=== PATIENT | male | born 1965 | race Caucasian/White ===

== ENCOUNTER → 2016-09-10 | Outpatient (CLI) | payer OTHER ==
[~2016-09-10] MED LIST: AZIT250T PO; BNC20 PO; OMEP40CA PO; PRED10TA PO; flonase INH; symbicort INH
[2016-09-10 12:39] LABS: BLOOD UREA NITROGEN 16 mg/dl (7-18); BUN/CREATININE RATIO 18.5 (10-20); CALCIUM 9.6 mg/dl (8.5-10.1); CARBON DIOXIDE 26 mmol/L (21-32); CHLORIDE 106 mmol/L (98-107); CREATININE 0.88 mg/dl (0.60-1.40); GLUCOSE 91 mg/dl (70-99); POTASSIUM 4.3 mmol/L (3.5-5.1); SODIUM 140 mmol/L (136-145)
[2016-09-10 13:28] LABS: URINE APPEARANCE CLEAR (CLEAR); URINE BILIRUBIN NEG (NEG); URINE COLOR DK YELLOW; URINE EPITHELIAL CELL AUTO 0-5 /lpf (0-5); URINE NITRITE NEG (NEG); URINE PH 5.5 (4.5-7.5); URINE SPECIFIC GRAVITY 1.017 (1.000-1.030); UROBILINOGEN NEG (NEG)
[2016-09-10 13:32] LABS: MANUAL MICROSCOPIC REQUIRED? NO; REVIEW REQ? NO
== END | disposition home or self-care (01) ==
LOC: C.LAB1850 10:54
PROVIDERS: ATTEND Allergy & Immunology Allergy
DX: R39.9 Unspecified symptoms and signs involving the genitourinary system (principal); R63.1 Polydipsia

== ENCOUNTER → 2016-10-26 | Outpatient (CLI) | payer OTHER | END | disposition home or self-care (01) | LOC: C.LAB1850 13:09 | PROVIDERS: ATTEND Urology | DX: R35.1 Nocturia (principal); N40.1 Benign prostatic hyperplasia with lower urinary tract symptoms; R39.15 Urgency of urination; R35.0 Frequency of micturition ==

== ENCOUNTER 2024-06-07 16:49 | Observation (INO) ==
--- OUTSIDE RECORDS SUMMARY | 2024-06-07 17:13 | External Medical Summary | Summary of Care ---
Author Name Unknown Organization [facility] Address [address] [place] [address] Phone [phone] Care Team Providers Care Stereoptic Projection Topographer Name Role Phone Petrona Kimble DO Primary Care Provider [phone] Reason for Visit * Reason Onset Date Comments Advice 04/14/2024 Procedure 04/14/2024 Encounter Details Date Type Department Care Team (Late st Contact Info) Description 04/14/2024 Telephone Cardiology, [facility] [address] [place] [address] Nico Kimble DO [address] [place] [address] Advice; Procedure Allergies No known active allergiesdocumented as of this encounter (statuses as of 05/27/2024) Medications Diclofenac Sodium 1 % External Gel (Voltaren) APPLY 1 G TOPICALLY 4X DAILY NEEDED TO JOINTS OF BOTH HANDS/WRISTS/ ELBOWS / KNEES/ ANKLES & FEET 09/12/19 23 Active Zepbound 10 MG/0.5ML Subcutaneous Solution Auto-injector (Tirzepatide-We ight Management) Inject 25 Units under the skin once a week. Active Allopurinol 100 MG Oral Tablet (Zyloprim) Take 1 Tablet by mouth in the morning. 90 Tablet 1 12/07/19 24 Active Omeprazole 20 MG Oral Capsule Delayed Release (PriLOSEC) TAKE 1 CAPSULE DAILY 1 HOURBEFORE THE FIRST MEAL OF THE DAY 90 Capsule 3 12/28/19 24 Active Clindamycin Phosphate 1 % External Solution Apply to the scalp 1-2 times daily 60 mL 2 02/11/20 24 Active Tadalafil 5 MG Oral Tablet (Cialis) Take 1 Tablet by mouth daily as needed for Erectile Dysfunction. 90 Tablet 3 02/26/20 24 Active Tamsulosin HCl 0.4 MG Oral Capsule (Flomax) Take 1 Capsule by mouth in the morning. 90 Capsule 3 02/26/20 24 Active Olmesartan Medoxomil 20 MG Oral Tablet (Benicar)Indica tions:Essential hypertension TAKE 1 TABLET IN THE MORNING 90 Tablet 1 03/15/20 24 Active Apixaban 5 MG Oral Tablet (Eliquis)Indica tions:Atrial fibrillation with RVR (HCC) Take 1 Tablet by mouth in the morning and 1 Tablet before bedtime. 180 Tablet 3 05/29/20 23 024 Discontinued(R efill) Celecoxib 200 MG Oral Capsule (CeleBREX) Take 1 Capsule by mouth in the morning. As needed . 07/23/19 24 024 Discontinued(D ischarged) Atorvastatin Calcium 10 MG Oral Tablet (Lipitor)Indica tions:Dyslipide anita, goal LDL below 70 Take 1 Tablet by mouth in the morning. 90 Tablet 1 12/07/19 24 024 Discontinued(R efill) Metoprolol Tartrate 25 MG Oral Tablet (Lopressor) Take 1 Tablet by mouth in the morning and 1 Tablet before bedtime. Do all this for 14 days. 28 Tablet 04/14/20 24 024 Discontinued documented as of this encounter (statuses as of 05/27/2024) Active Problems Problem Noted Date Diagnosed Date Acute deep vein thrombosis ( DVT) of tibial vein of left lower extremity 07/23/2022 Atrial fibrillation with RVR 07/20/2022 Multiple subsegmental pulmon ted emboli without acute cor pulmonale 07/20/2022 Body mass index (BMI) of 40.0 to 44.9 in adult 0 09/01/2018 Overview: Per Obesity protocol #1 - - BPH without obstruction/lower urinary tract symp toms 09/06/2017 Hypertension Sarcoidosis GERD (gastroesophageal reflux disease) documented as of this encounter (statuses as of 05/27/2024) Resolved Problems Problem Noted Date Diagnosed Date Resolved Date Body mass index (BMI) of 45. 0 to 49.9 in adult 07/07/2018 04/28/2024 Overview: Per Obesity protocol #1 - Body mass index (BMI) of 40. 0 to 44.9 in adult 08/06/2017 07/11/2018 Overview: Per Obesity protocol #1 documented as of this encounter (statuses as of 05/27/2024) Immunizations Name Administration Dates Next Due COVID-19 mRNA, LNP-s, No Pre serve, 2-Dose Series (Proxeon) 06/26/2021,09/22/2020,08/26/2020 Seasonal Influenza, PF, 6 M & above, IM , (FluLaval or Fluzone) 04/04/2023,07/21/2022(Deferred: Patient Refused),04/05/2020,08/21/2019 Seasonal Influenza, Quadriva lent, No Preserve, IM 03/08/2017 Seasonal Influenza, Recombin ant, RIV4, PF, (Flublock) 04/05/2021 TDAP (age 10 and older)(Boostrix) 08/21/2019 Zoster Vaccine Recombinant (Shingrix) 01/07/2020 ,08/21/2019 documented as of this encounter Social History Tobacco Use Types Packs/Day Years Used Date Smoking Tobacco: Never Passive Smoke Exposure: Never Smokeless Tobacco: Never Alcohol Use Standard Drinks/Week Comments Yes 0 (1 standard drink = 0.6 oz pur e alcohol) occ. PHQ-2 Answer Date Recorded PHQ Adult Total Score 0 04/22/2024 Hunger Vital Sign Answer Date Recorded Within the past 12 months, y ou worried that your food would run out before you got the money to buy more. Never true 03/30/20 24 Within the past 12 months, t he food you bought just didn't last and you didn't have money to get more. Never true 03/30/2024 Childcare Answer Date Recorded Do you feel overwhelmed with taking care of a child, family member or friend? No 03/30/2024 Does your family need help f inding childcare? (Household - for ages 0-17 years) Not on file 03/30/2024 Clothing Answer Date Recorded Have you been unable to get clothing when it was really needed? No 03/30/2024 Is your family able to get c lothes or diapers when needed? (Household - for ages 0-17 years) Not on file 03/30/2024 Personal Safety Answer Date Recorded Do you feel unsafe or have concerns for your saf ety? No 03/30/2024 Do you have concerns for you r family's safety? (Household - for ages 0-17 years) Not on file 03/30/2024 Utilities Answer Date Recorded Do you have trouble paying y our heating, water, or electric bill? No 03/30/2024 Is your family able to pay t he heat, water, or electric bill? (Household - for ages 0-17 years) Not on file 03/30/2024 Does your family have access to good internet? (Household - for ages 0-17 years) Not on file 03/30/2024 Employment Status Answer Date Recorded Are you unemployed or without regular income? No 03/30/2024 Does the household have a re lar source of income? (Household - for ages 0-17 years) Not on file 03/30/2024 Social Connections Answer Date Recorded How often do you feel lonely or isolated from th ose around you? Never 03/30/2024 Financial Resource Strain Answer Date R ecorded Do you have any trouble payi ng for your medications, or do you think you might in the future? No 03/30/2024 Does your family have troubl e paying for medicine? (Household - for ages 0-17 years) Not on file 03/30/2024 Transportation Needs Answer Date Record ed Do you have trouble getting a ride to medical visits or work? (Adult - for ages 18 years and over) Not on file 03/30/2024 Does your family have a hard time getting a ride to doctors visits? (Household - for ages 0-17 years) Not on file 03/30/2024 Has lack of transportation k ept you from medical appointments, meetings, work, or from getting things needed for daily living? Check all that apply. No 03/30/2024 Do you (or your family) have trouble finding or paying for a ride (transportation)? (Household - for ages 0-17 years) Not on file 03/30/2024 Housing Stability Answer Date Recorded Do you currently live in a s helter or have no steady place to sleep at night? No 03/30/2024 Do you think you are at risk of becoming homeless? (Adult - for ages 18 years and over) Not on file 03/30/2024 Does your family worry about paying for your home or becoming homeless? (Household - for ages 0-17 years) Not on file 1 Are you homeless or worried that you might be in the future? No 03/30/2024 Are you (or your family) roni eless or worried that you might be in the future? (Household - for ages 0-17 years) Not on file Food Insecurity Answer Date Recorded Do you need food for this week? No 03/30/2024 Are you able to get enough f ood for your family? (Household - for ages 0-17 years) Not on file 03/30/2024 Does your family need food t his week? (Household - for ages 0-17 years) Not on file 03/30/2024 Do you always have enough fo od for your family? (Household - for ages 0-17 years) Not on file 03/30/2024 Sex and Gender Information Value Date Recorded Sex Assigned at Male 10/03/2022 9:29 AM EDT Legal Sex Male 6:13 AM EST Gender Identity Male 10/03/2022 9:29 AM EDT Sexual Orientation Straight 10/03/2022 9: 29 AM EDT documented as of this encounter Functional Status * Are you deaf or do you have serious difficulty hearing? Answer Date of Assessment Author No 07/20/2022 12:05 AM Kimmie Willis RN * Are you blind or do you have serious difficulty seeing, even when wearing glasses? Answer Date of Assessment Author No 07/20/2022 12:05 AM Kimmie Willis RN * Do you have serious difficulty walking or climbing stairs? (5 years old or older) Answer Date of Assessment Author No 07/20/2022 12:05 AM Kimmie Willis RN * Do you have difficulty dressing or bathing? (5 years old or older) Answer Date of Assessment Author No 07/20/2022 12:05 AM Kimmie Willis RN * Because of a physical, mental, or emotional condition, do you have difficulty doing errands alone such as visiting a doctors office or shopping? (15 years old or older) Answer Date of Assessment Author No 07/20/2022 12:05 AM Kimmie Willis RN documented as of this encounter Mental Status * Because of a physical, mental, or emotional condition, do you have serious difficulty concentrating, remembering, or making decisions? (5 years old or older) Answer Entry Date Author No 07/20/2022 12:05 AM Kimmie Willis RN documented in this encounter Miscellaneous Notes * Telephone Encounter - Lenny Stein DO - 05/27/2024 5:43 PM EST Looks like patient has follow-up appointment to was canceled that he had been scheduled with Vito. Please help him reschedule. Lenny Stein DO * Telephone Encounter - Geovany Braun LPN - 04/15/2024 4:23 PM EDT Sent patient a [employer] message. Awaiting reply. * Telephone Encounter - Lenny Stein DO - 04/15/2024 4:02 PM EDT Chart reviewed in coverage of Dr. Kimble. Agreement with going back on Eliquis, and lying colonoscopy. Cardiology nursing, please follow up with the patient this week by phone and see how he was feeling. He had been assessed in the emergency department at [facility] with the EKG on 04/14/2024, 10:58 a.m. revealing atrial fibrillation at 90 beats per minute. Lab results revealed stable kidney function electrolytes. Patient received 500 milliliters of normal saline. Please follow-up with him by phone to see how he is feeling. Lenny Stein DO * Telephone Encounter - Pat Erickson LPN - 04/14/2024 4:16 PM EDT Called pt, he restarted Eliquis this morning. * Telephone Encounter - Jenelle Sosa OSA - 04/14/2024 3:35 PM EDT Patient called and needs to cancel procedure for 04/16/24. Patient in A-Fib and on blood thinners. Will clall back to reschedule. Notified Sapna hsieh of cancellation-spoke to Nico to cancel. * Telephone Encounter - Faiza Yañez OSA - 04/14/2024 7:55 AM EDT Person calling: patient Relationship to patient: self Phone/Fax to return call: [phone] Reason for call(brief): pt eliquis was stopped so pt can get a colonoscopy Pharmacy: Provider Name:Babatunde Detailed message to office:pt adv he went into a-fib last evening wants to know if he should go back on the medication and cancel colonoscopy documented in this encounter Plan of Treatment Upcoming Encounters Date Type Department Care Team ([facility] st Contact Info) Description 11/02/2024 10:30 AM EDT [facility] [address] [place] [place] [address] Petrona Kimble DO [address] [place] [address] 02/15/2025 8:20 AM EDT Office Visit [address] [phone] Lorenzo Rebollar PA-C [address] [facility] [place] [address] 03/02/2025 8:30 AM EDT Office Visit Urology, [facility] [address] [place] [address] Hipolito Watson MD [address] [place] [address] Scheduled Procedures Name Priority Associated Diagnoses Date/Ti me COLONOSCOPY FLEXIBLE PROXIMAL DIAGNOSTIC Recall History of colon polyps Health Maintenance Due Date Last Done Comments Hepatitis B Vaccine (1 of 3 - 19+ 3-dose series) 1985 Fecal Occult Blood Test 11/30/2011 Sigmoidoscopy 11/30/2011 Cologuard 08/26/2021 08/26/2018 Colonoscopy 09/26/2021 09/26/2018, 09/26/2018 Colorectal Cancer Screening 09/26/2021 COVID-19 Vaccine ( season) 2024 06/26/2021, 09/22/2020, 08/26/2020 Influenza Vaccine (FLU shot) (#1) 2024 04/04/2023, 04/05/2021, 04/05/2020, Additional history exists GFR 04/14/2025 04/14/2024, 12/09/2022, 04/02/2023, Additional history exists Depression Screening 04/22/2025 04/22/2024 Albumin/Creatinine Ratio 04/02/2026 04/02/2023 Diabetes Screening 04/14/2027 04/14/2024, 1 07/28/2022, 04/02/2023, Additional history exists Lipid Panel 05/27/2028 05/27/2023, 06/25, 07/20/2022, Additional history exists DTap/Tdap Vaccines (2 - Td or Tdap) 08/21/2029 08/21/2019 Zoster Vaccines Completed 01/07/2020, 08/21/2019 HIV Screening Discontinued HPV (Gardasil) Vaccine Aged Out No lo nger eligible based on patient's age to complete this topic Hepatitis C Screening Discontinued MENINGOCOCCAL (MENACTRA/MENVEO) Aged Out No longer eligible based on patient's age to complete this topic Pneumococcal Vaccine: Pediatrics (0 to 5 Years) and At-Risk Patients (6 to 64 Years) Aged Out No longer eligible based on patient's age to complete this topic documented as of this encounter Medical Devices Not on filedocumented as of this encounter Advance Directives * Full Code (Latest Code Status on File) Date Activated Date Inactivated Comments 07/20/2022 5:07 AM 07/21/2022 5:06 PM This order r eflects the patients wishes and were consensually agreed upon. Question Answer Comments Discussion of Advance Directives occurred with: Patient Does the patient have a Living Will? Yes, not cu rrently available Does the patient have Health Care Power of Document Management Analyst? Yes, not currently available Care Teams Stereoptic Projection Topographer Relationship Specialty Start Date End Date Petrona Kimble DO [address] [place] [address] PCP - General Family Medicine 03/08/17 documented as of this encounter
--- OUTSIDE RECORDS SUMMARY | 2024-06-07 17:13 | External Medical Summary | Summary of Care ---
Author Name Unknown Organization [facility] Address [address] [place] [address] Phone [phone] Care Team Providers Care Health Communications Specialist Name Role Phone Petrona Kimble DO Primary Care Provider Reason for Visit * Reason Onset Date Comments Medication Pre-auth 05/11/2024 omeprazole Encounter Details Date Type Department Care Team (Late st Contact Info) Description 05/11/[address] [facility] [address] [place] [address] Petrona Kimble [address] [place] [address] Medication Pre-auth (omeprazole) Allergies No known active allergiesdocumented as of this encounter (statuses as of 05/15/2024) Medications Diclofenac Sodium 1 % External Gel (Voltaren) APPLY 1 G TOPICALLY 4X DAILY NEEDED TO JOINTS OF BOTH HANDS/WRISTS/ ELBOWS / KNEES/ ANKLES & FEET 3 Active Apixaban 5 MG Oral Tablet (Eliquis)Indicat ions:Atrial fibrillation with RVR (HCC) Take 1 Tablet by mouth in the morning and 1 Tablet before bedtime. 180 Tablet 3 3 Active Zepbound 10 MG/0.5ML Subcutaneous Solution Auto-injector (Evelyn figueroat Management) Inject 25 Units under the skin once a week. Active Atorvastatin Calcium 10 MG Oral Tablet (Lipitor)Indicat ions:Dyslipidemi a, goal LDL below 70 Take 1 Tablet by mouth in the morning. 90 Tablet 1 4 Active Additional Information Patient taking differently:10 mg [id number], Reported on 03/09/2024 Allopurinol 100 MG Oral Tablet (Zyloprim) Take 1 Tablet by mouth in the morning. 90 Tablet 1 4 Active Omeprazole 20 MG Oral Capsule Delayed Release (PriLOSEC) TAKE 1 CAPSULE DAILY 1 HOURBEFORE THE FIRST MEAL OF THE DAY 90 Capsule 3 4 Active Clindamycin Phosphate 1 % External Solution Apply to the scalp 1-2 times daily 60 mL 2 4 Active Tadalafil 5 MG Oral Tablet (Cialis) Take 1 Tablet by mouth daily as needed for Erectile Dysfunction. 90 Tablet 3 4 Active Tamsulosin HCl 0.4 MG Oral Capsule (Flomax) Take 1 Capsule by mouth in the morning. 90 Capsule 3 4 Active Olmesartan Medoxomil 20 MG Oral Tablet (Benicar)Indicat ions:Essential hypertension TAKE 1 TABLET IN THE MORNING 90 Tablet 1 4 Active Azithromycin 250 MG Oral Tablet (Zithromax Z-Dano) Take two tablets by mouth on first day, then 1 tablet daily until gone 6 Tablet 4 Active Metoprolol Tartrate 25 MG Oral Tablet (Lopressor)Indic ations:Paroxysma l atrial fibrillation (HCC) Take 0.5 Tablets by mouth in the morning and 0.5 Tablets before bedtime. 90 Tablet 3 4 Active tiZANidine HCl 2 MG Oral Tablet (Zanaflex)Indica tions:Acute neck pain,Muscle spasms of neck Take 1 Tablet by mouth every 8 hours as needed for Muscle spasms. 30 Tablet 05/08/2024 10:00 AM EST 4 Active documented as of this encounter (statuses as of 05/15/2024) Active Problems Problem Noted Date Diagnosed Date [...] as of this encounter (statuses as of 05/15/2024) Resolved Problems Problem Noted Date Diagnosed Date Resolved Date Body mass index (BMI) of 45. 0 to 49.9 in adult 07/07/2018 04/28/2024 Overview: Per Obesity protocol #1 - Body mass index (BMI) of 40. 0 to 44.9 in adult 08/06/2017 07/11/2018 Overview: Per Obesity protocol #1 documented as of this encounter (statuses as of 05/15/2024) Immunizations Name Administration Dates Next Due COVID-19 mRNA, LNP-s, No Pre serve, 2-Dose Series ([employer]) 06/26/2021,09/22/2020,08/26/2020 Seasonal Influenza, PF, 6 M & [...] 03/30/2024 Does the household have a re gular source of income? (Household - for ages [...] Assessment Author No 07/20/2022 12:05 AM Kimmie Willis, YANA * Are you blind or do you [...] encounter Miscellaneous Notes * Telephone Encounter - Lorenzo Yeboah CPhT - 05/15/2024 9:53 AM EST Checked status of prior authorization for Omeprazole 20MG dr capsules through CM. Patient and pharmacy notified of approval. Approved until(if applicable): 05/13/25 Patient made aware of approval and will contact their mail order pharmacy Thank you, Luis Yeboah ([facility]) [facility] 05/15/2024, 9:53 AM * Telephone Encounter - Lorenzo Yeboah CPhT - 05/13/2024 3:30 PM EST Submitted information in previous note via CMM ([place]: [id number]).. Awaiting payer response. We will follow-up with insurance starting 05/15. Per [facility] request, if no decision is received from insurance by 05/18, we will route back to the [facility] after clarifying with the pharmacy that the claim is still not processing. Thank you, Luis Yeboah ([facility]) [facility] 05/13/2024, 3:30 PM * Telephone Encounter - Kody Smith, [facility] - 05/13/2024 12:44 PM EST Please submit PA. Include the following documentation: 04/22/24 ov Please copy and paste the following information into PA form: long-term, continuation of success therapy What other drugs is there medical record documentation of therapeutic failure on, intolerance to, or contraindication to for this condition? prevacid Ricardo as urgent: No Diagnosis/ICD-10 Code(s): k21.9 If instantaneous decision is not received after submitting prior auth, please continue to follow upon this and route back to the [facility] pool if no decision is made by the insurance by 05/18, after clarifying with the pharmacy that the claim is still not processing. If PA is denied, please also route back to [facility] pool. Thanks, Kody Smith PharmD Clinical Pharmacist [facility] ([facility]) [phone] 05/13/2024, 12:44 PM * Telephone Encounter - Petrona Stubbs PHARM Tech - 05/13/2024 12:40 PM EST Images from the original note were not included. This is a new PA request. Upon review of this prior authorization request, I verified this request is appropriate. This is prescribed by a department for which [facility] is authorized to review prior authorizations This is not a duplicate encounter regarding the same prior authorization The patient is planning to use insurance The insurance information listed in previous note is correct and the plan that is requiring prior authorization The insurance does not cover either brand or generic forms of this script as written without prior authorization The insurance does not cover any NDCs of this script without prior authorization RX Estimate tool confirms this script needs prior authorization Of note, there is nothing currently pending in [facility] for this request. Please advise how to proceed. Thank you, Petrona Stubbs CPhT [facility] 05/13/2024,12:42 PM * Telephone Encounter - Petrona Stubbs PHARM Tech - 05/13/2024 12:39 PM EST Patient calling to inform doctor that the patient's insurance will not pay for this medication without a completed prior authorization. Did confirm this information with the pharmacy. Pt's current insurance information is as follows: Patient name: Otf Marquis ID number: [id number] BIN number: [id number] PCN number: [id number] Group number: [id number] Subscriber name: Otf Marquis Primary or Secondary Insurance:Primary Medication: Omeprazole 20 MG Oral Capsule Delayed Release (PriLOSEC) Reason for Request: pa required Pharmacy and phone number: [facility] [place] [phone] Rx plan and phone number: matt Is this a new medication for the patient? No. How did the patient obtain the medication on the lastfill? It was covered last time on this same insurance. What alternative medications does the pharmacy have in stock?: dr ayoub Thank you, Petrona Stubbs CPhT [facility] 05/13/2024,12:39 PM * Telephone Encounter - Susi Estrada [facility] - 05/13/2024 9:54 AM EST Pending Prescriptions: Disp Refills Omeprazole 20 MG Oral Capsule Delayed Rele*90 Cap*3 Sig: TAKE 1 CAPSULE DAILY 1 HOURBEFORE THE FIRST MEAL OF THE DAY * Telephone Encounter - Susi Estrada RPh - 05/13/2024 9:48 AM EST Patient Comment: Matt sent me a message they need a pre authorization, i have enoycarolina woodall for 2weeks Thanks, Susi Estrada [facility] Clinical Pharmacist [facility] [phone] documented in this encounter Plan of Treatment Upcoming Encounters Date Type Department Care Team (Late st Contact Info) Description 11/02/2024 10:30 AM EDT Office Visit [facility] [address] [place] [phone] Petrona Kimble, DO [address] [place] [address] 02/15/2025 8:20 AM EDT Office Visit Dermatology [facility] [address] [place] [address] Lorenzo Rebollar PA-C [address] [place] [address] 03/02/2025 8:30 AM EDT Office Visit Urology, [facility] [address] [facility] [place] [address] Hipolito Watson MD [address] [address] Scheduled Procedures Name Priority Associated Diagnoses Date/Ti [...] 04/05/2020, Additional history exists GFR 04/14/2025 04/14/2024, 12/0 09/2022, 04/02/2023, Additional history exists Depression Screening 04/22/2025 [...] the patient have Health Care Power of Solar/Renewable Energy Sales? Yes, not currently available Care Teams Health Communications Specialist Relationship Specialty Start Date End Date Pterona Kimble DO [address] [place] [address] PCP - General Family Medicine 03/08/17 documented as of this encounter
--- OUTSIDE RECORDS SUMMARY | 2024-06-07 17:13 | External Medical Summary | Summary of Care ---
Author Name Unknown Organization [facility] Address [address] [place] [address] Phone [phone] Care Team Providers Care Living Nurse Name Role Phone Petrona Kimble DO Primary Care Provider [phone] Reason for Visit * Reason Onset Date Comments Medication Refill 05/22/2024 Encounter Details Date Type Department Care Team (Late st Contact Info) Description 05/22/2024 Refill Cardiology [facility] [address] [place], [place] [id number] Petrona Kimble DO [address] [facility] [place] [address] Atrial fibrillation with RVR (HCC) Allergies No known active allergiesdocumented as of this encounter (statuses as of 05/25/2024) Medications Diclofenac Sodium 1 % External Gel (Voltaren) APPLY 1 G TOPICALLY 4X DAILY NEEDED TO JOINTS OF BOTH HANDS/WRISTS/ ELBOWS / KNEES/ ANKLES & FEET 3 Active Zepbound 10 MG/0.5ML Subcutaneous Solution Auto-injector (Tirzepatide-[facility]) Inject 25 Units under the skin [...] Tablet 05/08/2024 10:00 AM EST 4 Active Atorvastatin Calcium 10 MG Oral Tablet (Lipitor)Indicat ions:Dyslipidemi a, goal LDL below 70 Take 1 Tablet by mouth every evening. 90 Tablet 1 4 Active Apixaban 5 MG Oral Tablet (Eliquis)Indicat ions:Atrial fibrillation with RVR (HCC) Take 1 Tablet by mouth in the morning and 1 Tablet before bedtime. 180 Tablet 1 4 Active Apixaban 5 MG Oral Tablet (Eliquis)Indicat ions:Atrial fibrillation with RVR (HCC) Take 1 Tablet by mouth in the morning and 1 Tablet before bedtime. 180 Tablet 3 3 024 Discontin ued(Refil l) documented as of this encounter (statuses as of 05/25/2024) Active Problems Problem Noted Date Diagnosed Date [...] as of this encounter (statuses as of 05/25/2024) Resolved Problems Problem Noted Date Diagnosed Date Resolved Date Body mass index (BMI) of 45. 0 to 49.9 in adult 07/07/2018 04/28/2024 Overview: Per Obesity protocol #1 - Body mass index (BMI) of 40. 0 to 44.9 in adult 08/06/2017 07/11/2018 Overview: Per Obesity protocol #1 documented as of this encounter (statuses as of 05/25/2024) Immunizations Name Administration Dates Next Due COVID-19 mRNA, LNP-s, No Pre serve, 2-Dose Series (nuevoStage) 06/26/2021,09/22/2020,08/26/2020 Seasonal Influenza, PF, 6 M & [...] No 03/30/2024 Does the household have a [facility] source of income? (Household - for ages [...] encounter Miscellaneous Notes * Telephone Encounter - Stevenson Gusman RPh - 05/25/2024 10:52 AM ESTSigned Prescriptions: Disp Refills Apixaban 5 MG Oral Tablet (Eliquis) 180 Ta*1 Sig: Take 1 Tablet by mouth in the morning and 1 Tablet before bedtime.Authorizing Provider: ALYSE KIMBLE OOrderingUser: STEVENSON GUSMAN documented in this encounter Plan of Treatment Upcoming Encounters Date Type Department Care Team (Late st Contact Info) Description 11/02/2024 10:30 AM EDT Office [facility] [place] [address] [facility] [place] [phone] Petrona Kimble, DO [address] [place] [address] 02/15/2025 8:20 AM EDT Office Visit Dermatology [facility] [address] [place] [phone] Lorenzo Rebollar PA-C [address] [place], [place] [phone] 03/02/2025 8:30 AM EDT Office Visit Urology, [facility] [address] [place] [place] [address] Hipolito Watson MD [address] [place] [address] Scheduled Procedures Name Priority Associated Diagnoses Date/Ti [...] 04/05/2020, Additional history exists GFR 04/14/2025 04/14/2024, 1209/2022, 04/02/2023, Additional history exists Depression Screening 04/22/2025 [...] Not on filedocumented as of this encounter Visit Diagnoses Diagnosis Atrial fibrillation with RVR (HCC) Atrial fibrillation documented in this encounter Advance Directives * Full Code [...] the patient have Health Care Power of Maid Supervisor? Yes, not currently available Care Teams Living Nurse Relationship Specialty Start Date End Date Petrona Kimble DO [address] [place] [address] PCP - General Family Medicine 03/08/17 documented as of this encounter
--- OUTSIDE RECORDS SUMMARY | 2024-06-07 17:13 | External Medical Summary | Summary of Care ---
Author Name Unknown Organization [facility] Address [address] [place] [address] Phone [phone] Care Team Providers Care Game Author Name Role Phone Juliana Kimble DO Primary Care Provider Reason for Visit * Reason Onset Date Comments Medication Refill 05/22/2024 Encounter Details Date Type Department Care Team (Late st Contact Info) Description 05/22/[address] [phone] Juliana Kimble, DO [address] [place] [address] Dyslipidemia, goal LDL below 70 Allergies No known active allergiesdocumented as of this encounter (statuses as of 05/23/2024) Medications Diclofenac Sodium 1 % External Gel (Voltaren) APPLY 1 G TOPICALLY 4X DAILY NEEDED TO JOINTS OF BOTH HANDS/WRISTS/ ELBOWS / KNEES/ ANKLES & FEET 3 Active Apixaban 5 MG Oral Tablet (Eliquis)Indicat ions:Atrial fibrillation with RVR (HCC) Take 1 Tablet by mouth in the morning and 1 Tablet before bedtime. 180 Tablet 3 3 Active Zepbound 10 MG/0.5ML Subcutaneous Solution Auto-injector ([facility]) Inject 25 Units under the skin [...] every evening. 90 Tablet 1 4 Active Atorvastatin Calcium 10 MG Oral Tablet (Lipitor)Indicat ions:Dyslipidemi a, goal LDL below 70 Take 1 Tablet by mouth in the morning. 90 Tablet 1 4 024 Discontin ued(Refil l) documented as of this encounter (statuses as of 05/23/2024) Active Problems Problem Noted Date Diagnosed Date [...] as of this encounter (statuses as of 05/23/2024) Resolved Problems Problem Noted Date Diagnosed Date Resolved Date Body mass index (BMI) of 45. 0 to 49.9 in adult 07/07/2018 04/28/2024 Overview: Per Obesity protocol #1 - Body mass index (BMI) of 40. 0 to 44.9 in adult 08/06/2017 07/11/2018 Overview: Per Obesity protocol #1 documented as of this encounter (statuses as of 05/23/2024) Immunizations Name Administration Dates Next Due COVID-19 mRNA, LNP-s, No Pre serve, 2-Dose Series (Vingle) 06/26/2021,09/22/2020,08/26/2020 Seasonal Influenza, PF, 6 M & [...] encounter Miscellaneous Notes * Telephone Encounter - Willy Hamlin RPh - 05/23/2024 7:22 AM ESTSigned Prescriptions: Disp Refills Atorvastatin Calcium 10 MG Oral Tablet (Li*90 Tab*1 Sig: Take 1Tablet by mouth every evening.Authorizing Provider: JULIANA KIMBLE User: PRESLEY HAMLIN documented in this encounter Plan of Treatment Upcoming Encounters Date Type Department Care Team (Late st Contact Info) Description 11/02/2024 10:30 AM EDT Office Visit [address] [place] [address] Juliana Kimble DO [address] [place] [address] 02/15/2025 8:20 AM EDT Office Visit Dermatology [facility] [address] [place] [phone] Lorenzo Rebollar PA-C [address] [place] [address] 03/02/2025 8:30 AM EDT Office Visit Urology, [facility] [address] [place] [phone] Hipolito Watson MD [address] [place] [address] Scheduled Procedures Name Priority Associated Diagnoses Date/Ti [...] as of this encounter Visit Diagnoses Diagnosis Dyslipidemia, goal LDL below 70 Other and unspecified hyperlipidemia documented in this encounter Advance Directives * [...] the patient have Health Care Power of Truck Farmer? Yes, not currently available Care Teams Game Author Relationship Specialty Start Date End Date Juliana Kimble DO [address] [place] [address] PCP - General Family Medicine 03/08/17 documented as of this encounter
[2024-06-07 17:14] LABS: Basophils # (auto) 0.02 K/uL (0.00-0.20); Basophils % (auto) 0.1 %; Hematocrit (blood only) 45.8 % (42.0-52.0); Hemoglobin 15.9 g/dl (14.0-18.0); Immature Granulocytes # (auto) 0.06 K/uL (0.01-0.20); Immature Granulocytes % (auto) 0.4 %; Lymphocytes # (auto) 1.66 K/uL (1.20-3.40); Mean Corpuscular Hemoglobin 30.4 pg (25.0-34.0); Mean Corpuscular Hgb Conc 34.7 g/dL (32.0-36.0); Mean Corpuscular Volume 87.6 fL (80.0-100.0); Mean Platelet Volume 9.6 fL (9.4-12.4); Monocytes # (auto) 0.95 K/uL (0.11-0.59); Monocytes % (auto) 6.3 %; Neutrophils # (auto) 12.44 K/uL (1.40-6.50); Neutrophils % (auto) 82.2 %; Platelet Count 376 K/uL (130-400); RDW Standard Deviation 38.5 fL (36.4-46.3); Red Blood Count 5.23 M/uL (4.70-6.10); White Blood Count 15.13 K/ul (4.8-10.8)
--- NOTE | 2024-06-07 17:14 | Emergency Department Note ---
ED Provider Note CHIEF COMPLAINT: Palpitations HISTORY OF PRESENT ILLNESS: This 58-year-old male patient presents to the emergency department via EMS for evaluation of tachycardia with exertion. He reports he was lifting wood outside, when he noticed his heart rate had increased into the 190's according to his watch. He states the event did not cause chest pain, however it made him feel dizzy and he had to drop to a knee. He reports he does have a history of atrial fibrillation, controlled with as needed metoprolol. He does take Eliquis daily, and states he has no history of previous WA or catheterizations. REVIEW OF SYSTEMS: A review of systems was performed with positives and pertinent negatives listed in the history of present illness. All other systems were reviewed and are negative. ALLERGIES: See below MEDICATIONS: See below PMH: See below PHYSICAL EXAM: VITALS: Vitals are noted on the nurse's note and reviewed by myself. Vital signs stable. GENERAL: 58-year-old male, in no acute distress, nondiaphoretic, well-developed well-nourished. SKIN: The skin was without rashes, erythema, edema, or bruising. HEAD: Normocephalic atraumatic. NECK: Supple without nuchal rigidity. No JVD. HEART: Tachycardia, with regular rhythm without murmurs gallops or rubs. LUNGS: Clear to auscultation bilaterally without wheezes, rales or rhonchi. No retractions or accessory muscle use. ABDOMEN: Positive bowel sounds x 4. Soft, nontender, without masses or organomegaly. Bauer sign negative. No guarding or rebound tenderness. MUSCULOSKELETAL: No muscle atrophy, erythema, or edema noted. Normal gait. Strength 5/5 throughout. NEURO: Patient was alert and oriented to person place and time. No focal neurological deficits. MEDICAL DECISION MAKING: The patient is a pleasant, 58-year-old male who arrives to the emergency department for evaluation of the above-stated complaint. A saline lock was established, CBC, CMP, lipase, troponin, EKG, chest x-ray were obtained. CBC shows slight leukocytosis, at 15.13 with a stable hemoglobin and hematocrit, CMP is unremarkable other than an elevated glucose of 153, lipase negative, troponin []. EKG shows sinus tachycardia, at a rate of 108, with ST depression evident in leads V2 V3, when compared with previous EKG of 04/22/2024 there is a significant increase in rate from 43 bpm with new signs of ischemia. 1 inch of nitro paste was placed on the patient's chest, and he was provided 324 mg of chewable aspirin. Nursing staff reported the patient was requiring oxygen as his saturation decreased to 90/92% on room air. He was placed on 2 L nasal cannula, with an increase in saturation. Repeat EKG post medication administration shows []. The patient will be admitted to the hospital for DIFFERENTIAL DIAGNOSIS: Cardiac ischemia, aortic dissection, pulmonary embolism, pneumothorax, pneumonia, pericarditis, myocarditis, esophageal rupture, GERD, cholecystitis, pancreatitis, musculoskeletal, as well as other pathologies. Continuous video camera operator: Order was placed for continuous video camera operator. Patient was placed on the video camera operator. Patient was noted to be in sinus tachycardia at an initial rate of 108 bpm. The chart was completed utilizing [employer] Speech voice recognition software. Grammatical errors, random word insertions, pronoun errors, and incomplete sentences are an occasional consequence of this system due to software limitations, ambient noise, and hardware issues. Any formal questions or concerns about the content, text, or information contained within the body of this dictation should be directly addressed to the physician for clarification. Past Med/Surg History Problem List (Updated 01/22/24 @ 09:00 by ANDREIA Dominique) Hypertension Gout Left knee pain DVT (deep venous thrombosis) Atrial fibrillation Dietary counseling and surveillance CLARY (obstructive sleep apnea) Metabolic syndrome Obesity Nocturia associated with benign prostatic hyperplasia Medical History (Updated 01/22/24 @ 09:00 by ANDREIA Dominique) Dyslipidemia Surgical History History of arthroscopic knee surgery History of nasal surgery History of carpal tunnel release LEFT History of esophagogastroduodenoscopy History of colonoscopy Social History Smoking Status: Never smoker Preferred Language: Wolof Feels Safe at Home: Yes Allergies Allergies Allergy/AdvReac Type Severity Reaction Status Date / Time No Known Allergies Allergy NKA Verified 04/29/24 09:46 Home Meds Home Medications Medication Instructions Recorded Confirmed omeprazole 20 mg capsule,delayed 20 mg PO DAILY 09/03/19 04/29/24 release multivitamin with iron (Daily 1 tab PO DAILY 07/09/22 04/29/24 Multiple Vitamins with Iron tablet) apixaban 5 mg tablet (Eliquis) 5 mg PO BID 08/08/22 04/29/24 allopurinol 100 mg tablet 100 mg PO DAILY 04/11/23 04/29/24 atorvastatin 10 mg tablet 10 mg PO DAILY 04/11/23 04/29/24 metoprolol tartrate 25 mg tablet 12.5 mg PO DAILY 04/29/24 04/29/24 Previous Rx's Medication Instructions Recorded olmesartan 20 mg tablet 20 mg PO DAILY #90 tabs 06/14/23 metformin 500 mg tablet,extended 500 mg PO DAILY #30 tabs 02/09/24 release 24 hr Tirzepatide 5 mg SC Q7D #2 vials 02/14/24 Results & Data (ED) Vital Signs Vital Signs - 24 hr 06/07/24 16:59 06/07/24 17:02 06/07/24 17:15 Temperature 36.5 C Temperature Source Oral Pulse Rate 108 H 103 H 103 H Pulse Rate [Apical] Pulse Rate from SpO2 Sensor 103 H Pulse Rhythm Regular Respiratory Rate 18 16 24 Respiratory Effort / Characteristics Non-Labored Spontaneous Respiratory Depth Normal Respiratory Pattern Regular Blood Pressure 121/96 Blood Pressure [Right Arm] Blood Pressure Mean 104 Blood Pressure Mean [Right Arm] Pulse Oximetry 95 92 92 Oxygen Delivery Method Room Air Room Air Room Air Sepsis Recent Fever Within 48 Hours No Sepsis New/Unexplained Change in Mental Status N/A Sepsis Action Taken by Nursing No Action Required 06/07/24 17:23 06/07/24 17:23 06/07/24 17:23 Temperature Temperature Source Pulse Rate 103 H Pulse Rate [Apical] 104 H Pulse Rate from SpO2 Sensor Pulse Rhythm Respiratory Rate 23 Respiratory Effort / Characteristics Non-Labored Spontaneous Respiratory Depth Normal Respiratory Pattern Regular Blood Pressure 143/99 H Blood Pressure [Right Arm] 143/99 H Blood Pressure Mean 111 Blood Pressure Mean [Right Arm] 113 Pulse Oximetry 92 Oxygen Delivery Method Room Air Sepsis Recent Fever Within 48 Hours Sepsis New/Unexplained Change in Mental Status Sepsis Action Taken by Nursing 06/07/24 17:30 06/07/24 17:53 Temperature Temperature Source Pulse Rate 102 H 180 H Pulse Rate [Apical] Pulse Rate from SpO2 Sensor 102 H Pulse Rhythm Respiratory Rate 22 Respiratory Effort / Characteristics Respiratory Depth Respiratory Pattern Blood Pressure 134/90 Blood Pressure [Right Arm] Blood Pressure Mean 104 Blood Pressure Mean [Right Arm] Pulse Oximetry 92 Oxygen Delivery Method Room Air Sepsis Recent Fever Within 48 Hours Sepsis New/Unexplained Change in Mental Status Sepsis Action Taken by Senior Care Medications Current Medication List: was personally reviewed by me Laboratory Data Attestation: I reviewed the patient's lab results. 06/07/24 17:01 06/07/24 17:01 Lab Results 06/07/24 Range/Units 17:01 WBC 15.13 H (4.8-10.8) K/ul RBC 5.23 (4.70-6.10) M/uL Hgb 15.9 (14.0-18.0) g/dl Hct 45.8 (42.0-52.0) % MCV 87.6 (80.0-100.0) fL MCH 30.4 (25.0-34.0) pg MCHC 34.7 (32.0-36.0) g/dL RDW Std Deviation 38.5 (36.4-46.3) fL RDW Coeff of Marianne 12.0 (11.5-14.5) % Plt Count 376 (130-400) K/uL MPV 9.6 (9.4-12.4) fL Immature Gran % (Auto) 0.4 % Neut % (Auto) 82.2 % Lymph % (Auto) 11.0 % [place] % (Auto) 6.3 % Eos % (Auto) 0.0 % Baso % (Auto) 0.1 % Neut # (Auto) 12.44 H (1.40-6.50) K/uL Lymph # (Auto) 1.66 (1.20-3.40) K/uL [place] # (Auto) 0.95 H (0.11-0.59) K/uL Eos # (Auto) 0.00 (0.00-0.50) K/uL Baso # (Auto) 0.02 (0.00-0.20) K/uL Immature Gran # (Auto) 0.06 (0.01-0.20) K/uL PT 11.7 (9.0-12.0) Seconds INR 1.1 (0.9-1.1) APTT 25 (21-31) Seconds PTT Ratio 0.9 Sodium 135 L (136-145) mmol/L Potassium 3.6 (3.5-5.1) mmol/L Chloride 103 (98-107) mmol/L Carbon Dioxide 22 (21-32) mmol/L Anion Gap 10 (3-11) BUN 17 (6-23) mg/dl Creatinine 0.88 (0.6-1.4) mg/dl Est Cr Clr Drug Dosing 132.8 ml/min eGFR 100.29 BUN/Creatinine Ratio 19.3 (10-20) Glucose 153 H (70-99(Fasting)) mg/dl Calcium 9.3 (8.6-10.3) mg/dl Total Bilirubin 0.6 (0.2-1.0) mg/dl AST 15 (13-39) U/L ALT 16 (7-52) U/L Alkaline Phosphatase 66 (34-104) U/L Troponin I High Sens 22.6 H (0-20) pg/ml Total Protein 7.4 (6.0-8.3) gm/dl Albumin 4.4 (3.4-5.0) gm/dl Globulin 3.0 (2.5-4.0) gm/dl Albumin/Globulin Ratio 1.5 (0.9-2) Lipase 11 (11-82) U/L Administered Medications Discontinued Medications Aspirin (Aspirin 81 Mg Chew) 324 mg PO NOW STA Stop: 06/07/24 17:14 Last Admin: 06/07/24 17:19 Dose: 324 mg Documented By: LAMIN Nitroglycerin (Nitroglycerin 2% Ointment 30gm Tube) 1 inch EXT Q6H ANUSHA Stop: 07/07/24 17:14 Last Admin: 06/07/24 17:18 Dose: 1 inch Documented By: LAMIN Imaging Data Attestation: I personally reviewed and interpreted this imaging study as follows: Radiologist's Impression: Chest X-Ray 06/07/24 17:02 EXAM: X-ray chest one-view portable CLINICAL HISTORY: Chest pain PRIORS: None TECHNIQUE: Portable upright AP chest FINDINGS: The chest is well-expanded. No airspace consolidation, effusion or congestive changes. Heart size is normal. No pneumothorax. Trachea is patent. Osseous structures demonstrate no acute abnormality. No radiopaque foreign body. IMPRESSION: No plain film evidence of an acute cardiopulmonary process. Electronically signed by Chrissy Nava 06-07-2024 5:33 PM Discharge Plan Visit Data Chief Complaint: Cardiac Assessment ED Provider: Pramod Zhang ED Midlevel Provider: Lenora Crockett Forms Stand Alone Forms: My [facility] Prescriptions Prescriptions: No Action metformin 500 mg tablet extended release 24 hr 500 mg PO DAILY Qty: 30 1RF Tirzepatide 5 mg solution 5 mg SC Q7D Qty: 2 1RF Rx Instructions: Sig: Inject tirzepatide 0.5 ml subcutaneously once every 7 days x 4 weeks Disp: Tirzepatide 2 mL (5 mg/ 0.5 mL) Eliquis 5 mg tablet 5 mg PO BID multivitamin with iron [Daily Multiple Vitamins/Iron] Tablet 1 tab PO DAILY allopurinol 100 mg tablet 100 mg PO DAILY atorvastatin 10 mg tablet 10 mg PO DAILY olmesartan 20 mg tablet 20 mg PO DAILY Qty: 90 3RF metoprolol tartrate 25 mg tablet 12.5 mg PO DAILY omeprazole 20 mg Capsule,Delayed Release(Dr/Ec) 20 mg PO DAILY Referrals Referrals: Petrona Kimble DO [Primary Care Provider] -
--- OUTSIDE RECORDS SUMMARY | 2024-06-07 17:14 | External Medical Summary | Summary of Care ---
Author Name Unknown Organization [facility] Address [address] [place] [address] Phone [phone] Care Team Providers Care Surveillance Officer Name Role Phone Petrona Kimble DO Primary Care Provider Reason for Visit * Reason Onset Date Comments Pre Cert/Prior Auth 05/06/2024 Omprempozale Encounter Details Date Type Department Care Team (Late st Contact Info) Description 05/06/2024 Telephone [facility] [address] [place] [address] Petrona Kimble [address] [place] [address] Pre Cert/Prior Auth (Omprempozale) Allergies No known active allergiesdocumented as of this encounter (statuses as of 05/06/2024) Medications Diclofenac Sodium 1 % External Gel (Voltaren) APPLY 1 G TOPICALLY 4X DAILY NEEDED TO JOINTS OF BOTH HANDS/WRISTS/ ELBOWS / KNEES/ ANKLES & FEET 3 Active Apixaban 5 MG Oral Tablet (Eliquis)Indicat ions:Atrial fibrillation with RVR (HCC) Take 1 Tablet by mouth in the morning and 1 Tablet before bedtime. 180 Tablet 3 3 Active Celecoxib 200 MG Oral Capsule (CeleBREX) Take 1 Capsule by mouth in the morning. As needed . 4 Active Zepbound 10 MG/0.5ML Subcutaneous Solution Auto-injector ([facility]) Inject 25 Units under the skin once [...] as needed for Muscle spasms. 30 Tablet 04/28/2024 9:05 AM EST 4 Active documented as of this encounter (statuses as of 05/06/2024) Active Problems Problem Noted Date Diagnosed Date [...] as of this encounter (statuses as of 05/06/2024) Resolved Problems Problem Noted Date Diagnosed Date Resolved Date Body mass index (BMI) of 45. 0 to 49.9 in adult 07/07/2018 04/28/2024 Overview: Per Obesity protocol #1 - Body mass index (BMI) of 40. 0 to 44.9 in adult 08/06/2017 07/11/2018 Overview: Per Obesity protocol #1 documented as of this encounter (statuses as of 05/06/2024) Immunizations Name Administration Dates Next Due COVID-19 mRNA, LNP-s, No Pre serve, 2-Dose Series (Eat Latin) 06/26/2021,09/22/2020,08/26/2020 Seasonal Influenza, PF, 6 M & [...] encounter Miscellaneous Notes * Telephone Encounter - Roula Bell LPN - 05/06/2024 3:01 PM EST Received fax back from [employer] stating pt has no pharmacy coverage available. Fimsed fax into pt's chart * Telephone Encounter - Roula Bell LPN - 05/06/2024 1:07 PM EST A paper prior auth was signed by provider and faxed to [facility] for approval. documented in this encounter Plan of Treatment Upcoming Encounters Date Type Department Care Team (Late st Contact Info) Description 05/11/2024 9:00 AM EST Office Visit Cardiology, [address] [place] [address] Suzanne Oleray CRNP [address] [facility] [place] [address] 11/02/2024 10:30 AM EDT Office Visit [facility] [address] [place] [address] Petrona Kimble, DO [address] [place] [address] 02/15/2025 8:20 AM EDT Office Visit Dermatology [facility] [address] [place] [address] Lorenzo Rebollar PA-C [address] [place] [address] 03/02/2025 8:30 AM EDT Office Visit Urology, [facility] 132 [place] [address] Hipolito Watson MD [address] [place] [address] [place] [address] Scheduled Procedures Name Priority Associated Diagnoses Date/Ti [...] the patient have Health Care Power of Match Marker? Yes, not currently available Care Teams Surveillance Officer Relationship Specialty Start Date End Date Petrona Kimble DO [address] [facility] [place] [address] PCP - General Family Medicine 03/08/17 documented as of this encounter
--- OUTSIDE RECORDS SUMMARY | 2024-06-07 17:14 | External Medical Summary | Summary of Care ---
Author Name Unknown Organization [facility] Address [address] [place] [address] Phone [phone] Care Team Providers Care Copy Manager Name Role Phone Petrona Kimble DO Primary Care Provider Reason for Visit * Reason Onset Date Comments Pre Cert/Prior Auth 05/06/2024 Omprempozale Encounter Details Date Type Department Care Team (Late st Contact Info) Description 05/06/2024 Telephone [facility] [address] [place] [address] Petrona Kimble [address] [place] [address] Pre Cert/Prior Auth (Omprempozale) Allergies [...] mRNA, LNP-s, No Pre serve, 2-Dose Series (Xobni) 06/26/2021,09/22/2020,08/26/2020 Seasonal Influenza, PF, 6 M & [...] was signed by provider and faxed to [facility] for approval. documented in this encounter Plan of Treatment Upcoming Encounters Date Type Department Care Team (Late st Contact Info) Description 05/11/2024 9:00 AM EST Office Visit Cardiology, [facility] 132 [facility] [place] [phone] Suzanne Oleary CRNP [address] [place] [address] 11/02/2024 10:30 AM EDT [facility] [address] [facility] [place] [phone] Petrona Kimble DO [address] [place] [address] 02/15/2025 8:20 AM EDT Office Visit Dermatology [facility] [address] [place] [phone] Lorenzo Rebollar PA-C [address] [place] [address] 03/02/2025 8:30 AM EDT Office Visit Urology, [facility] [address] [place] [phone] Hipolito Watson MD [address] [place] [address] Scheduled Procedures Name Priority Associated Diagnoses Date/Ti [...] the patient have Health Care Power of Building Consultant? Yes, not currently available Care Teams Copy Manager Relationship Specialty Start Date End Date Petrona Kimble DO [address] [facility] [place] [address] PCP - General Family Medicine 03/08/17 documented as of this encounter
[2024-06-07] MEDS: NITROGLYCERIN 2% OINTMENT 30GM TUBE EXT SCH (17:18)
[2024-06-07] MEDS: ASPIRIN 81 MG CHEW PO STA (17:19)
[2024-06-07 17:30] LABS: Albumin Globulin Ratio 1.5 (0.9-2); Albumin Level 4.4 gm/dl (3.4-5.0); BUN Creatinine Ratio 19.3 (10-20); Bilirubin,Total 0.6 mg/dl (0.2-1.0); Calcium 9.3 mg/dl (8.6-10.3); Creatinine Clr Calc Pharmacy 132.8 ml/min; Potassium 3.6 mmol/L (3.5-5.1); Total Protein 7.4 gm/dl (6.0-8.3)
--- NOTE | 2024-06-07 17:33 | XRay Report ---
EXAM: X-ray chest one-view portable CLINICAL HISTORY: Chest pain PRIORS: None TECHNIQUE: Portable upright AP chest FINDINGS: The chest is well-expanded. No airspace consolidation, effusion or congestive changes. Heart size is normal. No pneumothorax. Trachea is patent. Osseous structures demonstrate no acute abnormality. No radiopaque foreign body. IMPRESSION: No plain film evidence of an acute cardiopulmonary process. Electronically signed by Chrissy Nava 06-07-2024 5:33 PM
[2024-06-07 17:36] LABS: Troponin I High Sensitivity 22.6 pg/ml (0-20)
--- NOTE | 2024-06-07 17:46 | History & Physical Report ---
Date of Service June 07, 2024 Assessment & Plan (1) Palpitations: Plan: Palpitations Likely A-fib RVR/SVT Abnormal EKG likely due to tachycardia Mild troponin elevation likely demand ischemia secondary to tachycardia Currently in sinus H/O A-fib on Eliquis, as needed metoprolol Check TSH, resting ECHO Monitor and replete electrolytes Start on metoprolol 25 mg twice a day Continue Eliquis for anticoagulation Trend troponins, repeat EKG IV lopressor PRN Cardiology consulted (follows with [facility]) Monitor on telemetry Check D-dimer given history of PE, DVT Consider CTA, venous Doppler if D-dimer elevated Gentle IV fluids Leukocytosis Likely reactive secondary to above Currently no signs of infection Monitor Hypertension Continue olmesartan Also started on metoprolol Monitor blood pressure H/O PE, DVT Continue Eliquis Gout Continue allopurinol BPH Continue tamsulosin Morbid obesity BMI 41 on Tirzepatide CLARY Does not use CPAP DVT Px: Eliquis CODE STATUS Full code History of Present Illness Chief Complaint: Palpitations Primary Care Provider: Petrona Kimble DO Patient is a 58-year-old male with history of PE, DVT, atrial fibrillation on chronic anticoagulation with Eliquis, gout, hypertension, obesity, obstructive sleep apnea and other medical problems presents with history of palpitations which started while he was walking uphill and collecting wood outside. Patient reports having dyspnea on exertion associated with dizziness and on checking his Watch, his heart rate was in 190s and so called EMS. Palpitations lasted for about 45 minutes. When he stepped outside the house, took deep breath palpitations resolved. He admits to taking his metoprolol this afternoon at around 3 PM which she uses as needed for palpitations. He admits to drinking 60 ounces of coffee today and 1 beer today. He has been hunting for the last 3 days and believes poor oral intake. He recently visited his orthopedic physician for cervical arthritis and was started on prednisone tapering course, first dose was yesterday 80 mg. Denies any history of chest pain, syncopal episode, pedal edema, diaphoresis, cough, fever, chills, headache, change in vision, nausea, vomiting, abdominal pain, diarrhea, dysuria, hematuria, recent travel, recent change in medications. He admits to taking his Eliquis this morning. Allergies Allergy/AdvReac Type Severity Reaction Status Date / Time No Known Allergies Allergy NKA Verified 06/07/24 18:27 Home Medications Medication Instructions Recorded Confirmed Type omeprazole 20 mg capsule,delayed 20 mg PO DAILY 09/03/19 06/07/24 History release apixaban 5 mg tablet (Eliquis) 5 mg PO BID 08/08/22 06/07/24 History allopurinol 100 mg tablet 100 mg PO DAILY 04/11/23 06/07/24 History atorvastatin 10 mg tablet 10 mg PO DAILY 04/11/23 06/07/24 History olmesartan 20 mg tablet 20 mg PO DAILY #90 tabs 06/14/23 06/07/24 Rx metoprolol tartrate 25 mg tablet 25 mg PO DAILY PRN A-fib 04/29/24 06/07/24 History multivitamin 1 tab PO DAILY 06/07/24 06/07/24 History prednisone 20 mg tablet See Rx Instructions .Route .COMPLEX 06/07/24 06/07/24 History tadalafil 5 mg tablet (Cialis) 5 mg PO HS 06/07/24 06/07/24 History tamsulosin 0.4 mg capsule 0.4 mg PO QAM 06/07/24 06/07/24 History tirzepatide (weight loss) 5 mg/0.5 5 mg subcut Q7D 06/07/24 06/07/24 History mL subcutaneous pen injector tizanidine 4 mg tablet 4 mg PO Q6H PRN Muscle Spasms 06/07/24 06/07/24 History Past Med/Surg History Problem List (Updated 06/07/24 @ 18:51 by Jose Juan Campos MD) Palpitations Hypertension Gout Left knee pain DVT (deep venous thrombosis) Atrial fibrillation Dietary counseling and surveillance CLARY (obstructive sleep apnea) Metabolic syndrome Obesity Nocturia associated with benign prostatic hyperplasia Medical History Dyslipidemia Surgical History History of arthroscopic knee surgery History of nasal surgery History of carpal tunnel release LEFT History of esophagogastroduodenoscopy History of colonoscopy Social History Smoking Status: Never smoker Preferred Language: [place] Feels Safe at Home: Yes Review of Systems Review of Systems: All systems reviewed & are unremarkable except as noted in Subjective Physical Exam Physical Exam: Physical Exam: Vitals signs as noted above General Appearance: Obese, no apparent distress Head: normocephalic, Atraumatic Eyes: normal inspection, EOMI Neck: supple, Trachea midline Respiratory/Chest: Normal breath sounds, CTA, No accessory muscle use Cardiovascular: S1, S2, No murmur Abdomen/GI:Soft, Non tender, Bowel sounds present Extremities/Musculoskeletal:normal inspection, no edema Neurologic/Psych:AAOX3, grossly no focal neurological deficits Skin: normal color, warm Results & Data Results & Data Vital Signs (Past 12 Hours) Vital Signs Temp Pulse Pulse Resp BP BP Pulse Ox 06/07/24 17:30 102 H 22 134/90 92 06/07/24 17:23 143/99 H 06/07/24 17:23 104 H 23 143/99 H 92 06/07/24 17:23 103 H 06/07/24 17:15 103 H 24 92 06/07/24 17:02 103 H 16 92 06/07/24 16:59 36.5 C 108 H 18 121/96 95 O2 Del Method 06/07/24 17:30 Room Air 06/07/24 17:23 06/07/24 17:23 Room Air 06/07/24 17:23 06/07/24 17:15 Room Air 06/07/24 17:02 Room Air 06/07/24 16:59 Room Air Laboratory Results Short CBC 06/07/24 Range/Units 17:01 WBC 15.13 H (4.8-10.8) K/ul Hgb 15.9 (14.0-18.0) g/dl Hct 45.8 (42.0-52.0) % Plt Count 376 (130-400) K/uL BMP 06/07/24 17:01 Sodium 135 L Potassium 3.6 Chloride 103 Carbon Dioxide 22 BUN 17 Creatinine 0.88 Glucose 153 H Calcium 9.3 Liver Function 06/07/24 Range/Units 17:01 Total Bilirubin 0.6 (0.2-1.0) mg/dl AST 15 (13-39) U/L ALT 16 (7-52) U/L Alkaline Phosphatase 66 (34-104) U/L Albumin 4.4 (3.4-5.0) gm/dl Diagnostic Findings --CXR:No plain film evidence of an acute cardiopulmonary process. ECG Additional Comments: EKG: Sinus tachycardia, heart rate 108, low voltage QRS, incomplete right bundle branch block, QTc 431, ST-T wave changes predominantly in anterior leads.
[2024-06-07 17:48] LABS: INR 1.1 (0.9-1.1); Partial Thromboplastin Ratio 0.9; Partial Thromboplastin Time 25 Seconds (21-31); Prothrombin Time 11.7 Seconds (9.0-12.0)
[2024-06-07] MEDS ORDERED: tiZANidine HCL 4 MG TABLET PO PRN (20:51)
[2024-06-07] MEDS ORDERED: METOPROLOL TARTRATE 1 MG/ML VIAL IV PRN (20:51)
[2024-06-07] MEDS ORDERED: ONDANSETRON INJ 2 MG/ML 2 ML VIAL IV PRN (20:51)
[2024-06-07] MEDS ORDERED: NITROGLYCERIN SL 0.4 MG/TAB TAB SL PRN (20:51)
[2024-06-07] MEDS ORDERED: ACETAMINOPHEN 325 MG TAB PO PRN (20:51)
[2024-06-07] MEDS ORDERED: POLYETHYLENE (MIRALAX) 17 GM PACK PO PRN (20:51)
[2024-06-07] MEDS ORDERED: Heparin IV Adult Wt-Based Standard *NO* INITIAL Bolus Protocol IV SCH (21:05)
[2024-06-07] MEDS: POTASSIUM CHLORIDE CRTAB 20 MEQ TABCR PO ONE (21:48)
[2024-06-07] MEDS: SODIUM CHLORIDE 0.9% 1,000 ML IV ONE (21:51)
[2024-06-07] MEDS: MAGNESIUM SULFATE / D5W 1 GM/100 ML BAG IV ONE (21:55)
[2024-06-07 22:02] LABS: Magnesium 2.1 mg/dl (1.7-2.4)
[2024-06-07] MEDS: HEPARIN SODIUM/DEXTROSE 25,000 UNITS/500 ML BAG IV SCH (22:03)
[2024-06-07 22:13] LABS: D Dimer 190 ug/L FEU (0-500)
[2024-06-07] MEDS: METOPROLOL TARTRATE 25 MG TAB PO SCH (22:19)
[2024-06-07] MEDS: ATORVASTATIN 10 MG TAB PO SCH (22:19)
[2024-06-07 22:39] LABS: Troponin I High Sensitivity 79.8 pg/ml (0-20)
[2024-06-08 05:11] LABS: Hematocrit (blood only) 40.7 % (42.0-52.0); Hemoglobin 13.9 g/dl (14.0-18.0); Mean Corpuscular Hemoglobin 30.5 pg (25.0-34.0); Mean Corpuscular Hgb Conc 34.2 g/dL (32.0-36.0); Mean Corpuscular Volume 89.5 fL (80.0-100.0); Mean Platelet Volume 9.8 fL (9.4-12.4); Platelet Count 302 K/uL (130-400); RDW Coefficient of Variation 12.5 % (11.5-14.5); RDW Standard Deviation 40.9 fL (36.4-46.3); Red Blood Count 4.55 M/uL (4.70-6.10); White Blood Count 9.81 K/ul (4.8-10.8)
[2024-06-08 05:27] LABS: BUN Creatinine Ratio 19.2 (10-20); Calcium 8.5 mg/dl (8.6-10.3); Chol HDL Ratio 3.2 (0-5); Creatinine Clr Calc Pharmacy 149.6 ml/min; Magnesium 2.1 mg/dl (1.7-2.4); Potassium 3.8 mmol/L (3.5-5.1)
[2024-06-08 05:31] LABS: ANTI-Xa, UFH(UnfractionatedHep 0.67 IU/ml (0.3-0.7)
[2024-06-08 05:36] LABS: Troponin I High Sensitivity 55.6 pg/ml (0-20)
[2024-06-08 05:42] LABS: Thyroid Stimulating Hormone 0.921 uIu/ml (0.300-4.500)
[2024-06-08 07:19] VITALS: RESP 18
[2024-06-08 07:59] LABS: Estimated Average Glucose 111 mg/dl; Hemoglobin A1C 5.5 % (4.5-5.6)
[2024-06-08] MEDS: PANTOprazole 40 MG TAB PO SCH (09:34)
[2024-06-08] MEDS: LOSARTAN POTASSIUM 50 MG TAB PO SCH (09:34)
[2024-06-08] MEDS: allopurinoL 100 MG TAB PO SCH (09:35)
[2024-06-08] MEDS: TAMSULOSIN HCL 0.4 MG CAP PO SCH (09:35)
[2024-06-08] MEDS: ASPIRIN 81 MG ECTAB PO SCH (09:35)
--- NOTE | 2024-06-08 10:19 | Discharge Summary ---
Discharge Summary Date of Service June 08, 2024 Principal Dx & Hospital Course #1 = Principal Diagnosis (1) Palpitations: (2) Morbid obesity: (3) CLARY (obstructive sleep apnea): Notes For Next Care Provider Medication Changes From Visit No medication change Admission HPI Per Admitting Provider Patient is a 58-year-old male with history of atrial fibrillation with occasions of tachybradycardia syndrome, morbid obesity although patient is doing excellent job on reducing his weight and also history of CLARY for which patient is in the process of transitioning to a different facemask. Patient in the past has been having episodes of fast heartbeat resulting in chest discomfort for which she was prescribed metoprolol to be used as needed. He came to the hospital yesterday because of palpitation, by the time he arrived, he did not have any significant tachyarrhythmia, he was observed overnight, no issue was noticed, he was seen and examined today he feels completely fine. He had slightly elevated troponin on admission which improved and trended down from 79 down to 55. Looking back at her previous episodes which happened a year ago, retrospectively I think this is another episode of the same with tachyarrhythmia or likely atrial fibrillation with RVR which made him symptomatic but by the time he came to the hospital he was back to his sinus rhythm. He does have metoprolol for these episodes, he was seen by his architectural project manager a month ago and he is supposed to get another Holter monitoring as he was explaining to me. As he remained stable and otherwise no further finding, after patient is seen by cardiology if he is approved, he can be discharged home on previous regimen. Discharge Exam VITALS: Reviewed. WEIGHT/BMI reviewed. GEN: Healthy appearing, well-developed, NAD. PSYCH: Good Judgment. AOx3. Normal memory, mood, and affect. CV: RRR, no m/r/g. LUNGS: CTAB, no w/r/c. ABD: Soft, NT/ND, NBS, no masses or organomegaly. : N/A SKIN: Warm, well perfused. No skin rashes or abnormal lesions. MSK: No deformities, Normal gait. EXT: No clubbing, cyanosis, or edema. NEURO: Ambulating with no limitations. Normal muscle strength and tone. No focal deficits. Updated Medication List Medication Instructions Recorded Confirmed Type omeprazole 20 mg capsule,delayed 20 mg PO DAILY 09/03/19 06/07/24 History release apixaban 5 mg tablet (Eliquis) 5 mg PO BID 08/08/22 06/07/24 History allopurinol 100 mg tablet 100 mg PO DAILY 04/11/23 06/07/24 History atorvastatin 10 mg tablet 10 mg PO DAILY 04/11/23 06/07/24 History olmesartan 20 mg tablet 20 mg PO DAILY #90 tabs 06/14/23 06/07/24 Rx metoprolol tartrate 25 mg tablet 25 mg PO DAILY PRN A-fib 04/29/24 06/07/24 History multivitamin 1 tab PO DAILY 06/07/24 06/07/24 History prednisone 20 mg tablet See Rx Instructions .Route .COMPLEX 06/07/24 06/07/24 History tadalafil 5 mg tablet (Cialis) 5 mg PO HS 06/07/24 06/07/24 History tamsulosin 0.4 mg capsule 0.4 mg PO QAM 06/07/24 06/07/24 History tirzepatide (weight loss) 5 mg/0.5 5 mg subcut Q7D 06/07/24 06/07/24 History mL subcutaneous pen injector tizanidine 4 mg tablet 4 mg PO Q6H PRN Muscle Spasms 06/07/24 06/07/24 History Hospital Stay Data Consultations 06/07/24 20:51 Consult Cardiology Routine Pending Results Patient Have Any Pending Studies at Discharge: No Discharge Instructions Given to Patient (Per Discharging Provider) No further recommendation Total Time Total Time Spent Total Time Spent (In Minutes): More than 40 minutes
[2024-06-08 11:21] VITALS: BP 115/72; PULSE 53; TEMP 98.1; O2SAT 93
--- NOTE | 2024-06-08 14:50 | XCELERA ---
[id number]
--- NOTE | 2024-06-10 05:55 | Electrocardiogram Report ---
Test Reason : Blood Pressure : */* mmHG Vent. Rate : 98 BPM Atrial Rate : 98 BPM P-R Int : 150 ms QRS Dur : 120 ms QT Int : 352 ms P-R-T Axes : 49 9 14 degrees QTcB Int : 450 ms Normal sinus rhythm Low voltage QRS Right bundle branch block T wave abnormality, consider anterior ischemia Abnormal ECG When compared with ECG of 07-Jun-2024 16:55, No significant change was found Confirmed by Endy Rogers ([id number]) on 06/10/2024 5:55:12 AM Referred By: REFERRED SELF Confirmed By: Endy Rogers
--- NOTE | 2024-06-10 05:55 | Electrocardiogram Report ---
Test Reason : Blood Pressure : */* mmHG Vent. Rate : 108 BPM Atrial Rate : 108 BPM P-R Int : 152 ms QRS Dur : 108 ms QT Int : 328 ms P-R-T Axes : 51 7 17 degrees QTcB Int : 440 ms Sinus tachycardia Possible Left atrial enlargement Low voltage QRS Right bundle branch block Abnormal ECG When compared with ECG of 31-Jan-2012 10:22, Anterior ST/T wave abnormality is now present Confirmed by Endy Rogers ([id number]) on 06/10/2024 5:54:29 AM Referred By: Confirmed By: Endy Rogers
--- NOTE | 2024-06-10 05:56 | Electrocardiogram Report ---
Test Reason : Blood Pressure : */* mmHG Vent. Rate : 53 BPM Atrial Rate : 53 BPM P-R Int : 160 ms QRS Dur : 128 ms QT Int : 458 ms P-R-T Axes : 32 -3 9 degrees QTcB Int : 429 ms Sinus bradycardia Right bundle branch block When compared with ECG of 07-Jun-2024 18:01, Vent. rate has decreased by 45 bpm T wave inversion no longer evident in Anterior leads Confirmed by Endy Rogers ([id number]) on 06/10/2024 5:55:48 AM Referred By: REFERRED SELF Confirmed By: Endy Rogers
== END 2024-06-08 12:00 | disposition home or self-care (01) ==
LOC: 4W 16:49 → ED 16:49 → SUATTDRO 17:52 → 4W 20:29